=== PATIENT | female | born 1955 | race Native Hawaiian/Other Pacific Islander ===

== ENCOUNTER 2016-04-11 11:46 | Day surgery (SDC) | payer BC ==
[2016-04-11] MEDS ORDERED: IV START KIT ONE (12:02)
[2016-04-11] MEDS ORDERED: LACTATED RINGERS 1,000 ML ONE (12:02)
[2016-04-11] MEDS ORDERED: LACTATED RINGERS 1,000 ML IV SCH (14:15)
== END 2016-04-11 14:32 | disposition home or self-care (01) ==
LOC: SDC 11:46
PROVIDERS: ATTEND Surgery
PROC: 0DBK8ZX Excision of Ascending Colon, Via Natural or Artificial Opening Endoscopic, Diagnostic (ICD-10-PCS; principal; 2016-04-11)
PROC: 0DBP8ZX Excision of Rectum, Via Natural or Artificial Opening Endoscopic, Diagnostic (ICD-10-PCS; 2016-04-11)
DX: Z12.11 Encounter for screening for malignant neoplasm of colon (principal); D12.2 Benign neoplasm of ascending colon; D12.8 Benign neoplasm of rectum; K57.30 Diverticulosis of large intestine without perforation or abscess without bleeding; K50.90 Crohn's disease, unspecified, without complications; E03.9 Hypothyroidism, unspecified; F41.9 Anxiety disorder, unspecified; Z88.1 Allergy status to other antibiotic agents
CPT/HCPCS: 45380; J7120